=== PATIENT | male | born 1980 | race African-American/Black ===

== ENCOUNTER 2017-04-25 16:43 | Emergency (ER) | payer MEDICAID | END 2017-04-25 17:58 | disposition home or self-care (01) | LOC: D.ER 16:43 | DX: R30.0 Dysuria (principal); N48.89 Other specified disorders of penis ==

== ENCOUNTER 2017-11-18 06:22 | Emergency (ER) | payer MEDICAID ==
[~2017-11-18] VITALS: Ht 185.4 cm; Wt 81.6 kg
[2017-11-18 06:25] VITALS: Ht 185.4 cm; Wt 81.6 kg
[2017-11-18 07:00] LABS: BASOPHILS 0.1 % (0-2); EOSINOPHILS 0.6 % (0-7); HEMATOCRIT 47.3 % (42.0-54.0); HEMOGLOBIN 15.9 g/dL (13.5-17.5); IMMATURE GRANULOCYTES 0.1 % (0-5); MCH 28.4 pg (26.0-34.0); MCHC 33.6 g/dL (31.0-37.0); MCV 84.6 fL (80.0-100.0); MEAN PLATELET VOLUME 10.8 fL (7.4-10.4); MONOCYTES 6.1 % (2-11); NEUTROPHILS 80.1 % (40-80); PLATELET COUNT 196 10x3/uL (130-400); RBC 5.59 10x6/uL (4.20-6.10); RDW 13.2 % (11.5-14.5); WBC 8.3 10x3/uL (4.8-10.8)
[2017-11-18 07:24] LABS: ALBUMIN 4.4 g/dL (3.4-5.0); ALKALINE PHOSPHATASE 71 U/L (46-116); ALT (SGPT) 23 U/L (10-68); BILIRUBIN - TOTAL 0.83 mg/dL (0.2-1.3); CALC OSMOLALITY 279 mosm/kg (275-300); CALCIUM 9.5 mg/dL (8.5-10.1); CARBON DIOXIDE 29.1 mmol/L (21.0-32.0); CHLORIDE - SERUM 103 mmol/L (98-107); CREATININE - SERUM 1.2 mg/dL (0.6-1.3); GLUCOSE 120 mg/dL (74-106); POTASSIUM - SERUM 4.6 mmol/L (3.5-5.1); PROTEIN - SERUM 9.2 g/dL (6.4-8.2); SODIUM 140 mmol/L (136-145); UREA NITROGEN 13 mg/dL (7-18); eGFR NON AFRICAN AMERICAN 72 mL/min (90-120)
[2017-11-18 07:42] LABS: CREATINE KINASE 1276 UL (21-232); LIPASE 101 U/L (73-393)
[2017-11-18 07:43] LABS: CKMB 0.5 U/L (0.0-3.6)
[2017-11-18] MEDS ORDERED: ZOFRAN ODT4 MG/UDTAB PO (07:50)
[2017-11-18 08:05] VITALS: BP 128/89
== END 2017-11-18 08:05 | disposition home or self-care (01) ==
LOC: D.ER 06:22
PROVIDERS: Family Medicine
DX: M62.82 Rhabdomyolysis (principal)

== ENCOUNTER 2019-05-23 18:23 | Emergency (ER) | payer OTHER ==
[~2019-05-23] VITALS: Ht 185.4 cm; Wt 81.8 kg
[~2019-05-23 18:23] MED LIST: ZOFRAN ODT4 MG/UDTAB PO
[2019-05-23 18:28] VITALS: Ht 185.4 cm; Wt 81.8 kg
[2019-05-23 21:31] VITALS: BP 132/70
== END 2019-05-23 21:33 | disposition home or self-care (01) ==
LOC: D.ER 18:23
DX: T14.8XXA Other injury of unspecified body region, initial encounter (principal)

== ENCOUNTER 2020-10-15 10:57 | Emergency (ER) | payer OTHER ==
[~2020-10-15] VITALS: Ht 185.4 cm; Wt 81.8 kg
[2020-10-15 10:59] VITALS: BP 166/59; Ht 185.4 cm; Wt 81.8 kg
[2020-10-15 11:28] LABS: BILIRUBIN NEGATIVE (NEGATIVE); KETONE NEGATIVE mg/dL (< 1+); NITRITE NEGATIVE (NEGATIVE); PH 5.5 (5.0-8.0); SQUAMOUS EPITHELIAL <1 HPF (0-4); UROBILINOGEN NORMAL mg/dL (< 2); WHITE CELLS - URINE 1 HPF (0-1)
== END 2020-10-15 13:17 | disposition home or self-care (01) ==
LOC: D.ER 10:57
PROVIDERS: Emergency Medicine
DX: Z20.2 Contact with and (suspected) exposure to infections with a predominantly sexual mode of transmission (principal)

== ENCOUNTER 2020-10-22 19:17 | Emergency (ER) | payer OTHER ==
[~2020-10-22] VITALS: Ht 185.4 cm; Wt 81.8 kg
[2020-10-22 19:30] VITALS: BP 140/77; Ht 185.4 cm; Wt 81.8 kg
[2020-10-22 19:51] LABS: BILIRUBIN NEGATIVE (NEGATIVE); KETONE TRACE mg/dL (< 1+); NITRITE NEGATIVE (NEGATIVE); PH 5.5 (5.0-8.0); SQUAMOUS EPITHELIAL <1 HPF (0-4); UROBILINOGEN 2 mg/dL (< 2); WHITE CELLS - URINE 1 HPF (0-1)
[2020-10-22 20:24] LABS: CALC OSMOLALITY 279 mosm/kg (275-300); CALCIUM 9.4 mg/dL (8.5-10.1); CHLORIDE - SERUM 105 mmol/L (98-107); CREATININE - SERUM 1.2 mg/dL (0.6-1.3); GLUCOSE 76 mg/dL (74-106); SODIUM 141 mmol/L (136-145); UREA NITROGEN 13 mg/dL (7-18); eGFR NON AFRICAN AMERICAN 71 mL/min (90-120)
[2020-10-22 20:30] LABS: BASOPHILS 1.5 % (0-2); EOSINOPHILS 4.3 % (0-7); HEMATOCRIT 42.8 % (42.0-54.0); HEMOGLOBIN 14.1 g/dL (13.5-17.5); LYMPHOCYTES 38.6 % (15-50); MCH 27.9 pg (26.0-34.0); MCHC 33.1 g/dL (31.0-37.0); MCV 84.5 fL (80.0-100.0); MEAN PLATELET VOLUME 8.1 fL (7.4-10.4); MONOCYTES 7.7 % (2-11); NEUTROPHILS 47.9 % (40-80); PLATELET COUNT 204 10x3/uL (130-400); RBC 5.06 10x6/uL (4.20-6.10); RDW 13.4 % (11.5-14.5); WBC 6.3 10x3/uL (4.8-10.8)
[2020-10-22 20:33] LABS: ALBUMIN 4.1 g/dL (3.4-5.0); ALKALINE PHOSPHATASE 64 U/L (30-120); ALT (SGPT) 25 U/L (10-68); AMYLASE - SERUM 109 U/L (25-115); BILIRUBIN - TOTAL 0.29 mg/dL (0.2-1.3); LIPASE 243 U/L (73-393); TROPONIN-I < 0.017 ng/mL (0.000-0.060)
[2020-10-22 21:10] LABS: CKMB 0.5 U/L (0.0-3.6); CREATINE KINASE 178 UL (21-232)
== END 2020-10-22 22:49 | disposition home or self-care (01) ==
LOC: D.ER 19:17
PROVIDERS: Emergency Medicine
DX: A64 Unspecified sexually transmitted disease (principal); A74.9 Chlamydial infection, unspecified; R10.9 Unspecified abdominal pain